=== PATIENT | male | born 2000 | race Caucasian/White ===

== ENCOUNTER 2024-07-03 17:33 | Observation (INO) ==
--- NOTE | 2024-07-03 17:41 | ED Triage Note ---
Date of Service July 03, 2024 Provider in Triage Author: Deisi Huber History of Present Illness This patient was briefly evaluated while in triage. An abbreviated physical exam was performed. This patient is a 23-year-old Male who presents to the ED for evaluation of chest pain. The patient states this has been ongoing for the past 1-2 weeks. It goes into the left arm. No shortness of breath or recent illness. Pain is intermittent. No pain at this time. Physical Exam GENERAL: Non-toxic and in no acute distress. HEENT: Pupils equal. No obvious scleral icterus. HEART: Regular rate and rhythm. LUNGS: Clear to auscultation. No accessory muscle use. NEURO: Alert and oriented. No obvious neurological deficits on quick neuro exam. Initial orders for labs and / or imaging were placed and patient was placed in the waiting area until a bed is available. Please see further documentation for the full ED course.
--- NOTE | 2024-07-03 18:28 | Emergency Department Note ---
Impression & Plan Chest pain, Heart murmur ED Provider Note CHIEF COMPLAINT: Chest pain HISTORY OF PRESENTING ILLNESS: This 23-year-old male patient presents to the emergency department for evaluation of intermittent left-sided chest pain for the past 2 weeks. The pain radiates to his left arm at times. Will get intermittent numbness and tingling into the left arm as well. Denies any pain of the arm. Denies any redness or swelling of the arm. Denies any neck or back pain. Denies SOB. Denies abdominal pain, nausea, or vomiting. Denies any injury or trauma to the area. Symptoms are worse at night when he lays down, but still intermittent. Does not seem to be worse with movement or with breathing. No symptoms with exertion. Sometimes the symptoms happen after eating, but not always. The symptoms are random and last for a few minutes and then resolve. He is getting the symptoms a few times a day every day per patient. He has not taken anything for the symptoms yet. The patient denies recent long car or plane rides or recent injury/trauma/surgery. Denies any personal history of blood clots or bleeding disorders. Denies any family history of blood clots or bleeding disorders. Denies any hormonal medication use. Denies any hemoptysis. Denies leg/calf pain or swelling. He denies any personal history of heart problems. Maternal grandmother with an ND in his 70's. Denies any other cardiac history in his family. Denies any family history of sudden . REVIEW OF SYSTEMS: See HPI for pertinent positives and pertinent negatives. ALLERGIES: NKDA MEDICATIONS: None PAST MEDICAL HISTORY: Denies pertinent past medical or pertinent past surgical history PHYSICAL EXAM: VITALS: Vitals are noted on the nurse's note and reviewed by myself. GENERAL: Non toxic, in no acute distress, non-diaphoretic. SKIN: No abnormal rashes or skin lesions to the chest, neck, back, or left arm. Capillary refill <2 sec. EYES: PERRLA. EOMI. Conjunctivae without injection, sclerae without icterus. NOSE: Patent without discharge. MOUTH: Mucous membranes moist. Uvula midline. Airway patent. NECK: Supple without nuchal rigidity. No cervical spine tenderness. No paraspinal muscle tenderness. Full range of motion of the neck without pain. HEART: Regular rate and rhythm. The patient has a II/ systolic murmur heard at the upper portion of the heart as well as a III/ systolic murmur at the base of the heart with possible gallop. LUNGS: Clear to auscultation bilaterally without wheezes, rales or rhonchi. No retractions or accessory muscle use. CHEST: Chest wall is nontender to palpation. No crepitus felt of the chest wall or neck area. ABDOMEN: Positive bowel sounds x 4. Normal tympanic percussion. Soft, nontender to palpation. No masses or hepatosplenomegaly. Harvey sign negative. No CVA tenderness. No guarding, rigidity, or rebound tenderness. No focal RLQ or LLQ tenderness. MUSCULOSKELETAL: No gross musculoskeletal defects. Bilateral lower extremities are nontender to palpation. No erythema, edema, warmth, or cording of the lower extremities felt. Peripheral pulses 2+ and equal in the bilateral upper and lower extremities. NEURO: Patient was alert and oriented. No focal neurological deficits. DIFFERENTIAL DIAGNOSIS: Differential diagnosis includes angina, ND, pericarditis, myocarditis, aortic dissection, pleurisy, pneumothorax, PE, pneumonia, pneumomediastinum, esophagitis, esophageal spasm, GERD, perforated esophagus, perforated duodenal/gastric ulcer, pancreatitis, cholecystitis, costochondritis, musculoskeletal, bronchitis, URI, or others. ED COURSE AND MEDICAL DECISION MAKING: MEDICATIONS GIVEN: 500 mL liter normal saline solution bolus. Additional fluids were held due to the severe IV fluid shortage. Pepcid 20 mg IV. Tylenol 1000 mg IV. MONITOR: Continuous bus monitor: Order was placed for continuous bus monitor. Patient was placed on the bus monitor and continuous pulse ox. Patient was noted to be in normal sinus rhythm at an initial rate of 80 bpm per my interpretation. EKG: EKG was interpreted by myself as normal sinus rhythm at 87 bpm with no acute ST or T wave changes. Repeat EKG showed normal sinus rhythm at 80 bpm with some mild ST elevation that appears consistent with either early repolarization or pericarditis. No reciprocal changes. No evidence for ischemia. INTERPRETATION OF LABS: I interpreted the labs with full lab results as below in the lab section of this note. Pertinent lab results discussed in the MDM section below. INTERPRETATION OF IMAGING: Imaging studies were interpreted by myself and read by radiology as per the imaging section of this note. Chest x-ray was negative for acute cardiopulmonary etiology. CTA of the chest with IV contrast showed no evidence for PE, pneumonia, pneumothorax, cardiac abnormality, or other acute cardiopulmonary etiology. CONSULTATIONS: On-call hospitalist MDM SUMMARY: The patient was seen during a time of extreme volume and extreme acuity. Nursing triage protocols were initiated with IV lock, labs, and/or imaging studies conducted by protocol in the triage area. The patient was initially evaluated in a triage room and then re-evaluated once they were taken back to an exam room. The patient has had intermittent left-sided chest pain radiating to his back for the past 2 weeks. The pain also radiates into his left arm and his left arm feels like it goes numb sometimes. Currently he has no left arm symptoms. No redness, pain, or swelling of the left arm. No pain of the neck. No abdominal pain, nausea, or vomiting. No fevers, cough, or URI symptoms. No previous cardiopulmonary problems. The patient has a heart murmur on exam as discussed above which the patient states is new for him. The patient's initial EKG did not show acute abnormalities. Repeat EKG done by nursing staff and the patient was taken back to a room showed mild sloping ST elevation compared to his previous EKG which may be more consistent with early repolarization or possible pericarditis. However, no evidence for STEMI or ischemia. The patient was chest pain-free on recheck when he was taken back to the room. However, he states that he continues with intermittent symptoms. White blood cell count elevated at 5.61. Hemoglobin normal at 17.8. Platelet count normal at 202. Coags were normal. Total bilirubin 1.2, but CMP otherwise normal. Magnesium normal. Lipase normal. TSH normal. High-sensitivity troponin normal. Urinalysis with 1+ ketones, but otherwise negative. Lyme disease screen negative. ESR and CRP normal. Chest x-ray was negative for acute cardiopulmonary etiology. CTA of the chest with IV contrast showed no evidence for PE, pneumonia, pneumothorax, cardiac abnormality, or other acute cardiopulmonary etiology. I had a meaningful discussion about this patient with Dr. Gruber who agrees with my assessment and the treatment plan. Due to the patient's murmur on exam that appears to be new per patient or at least unknown to the patient as well as his intermittent chest pain and symptoms into the left arm, we feel the patient requires admission for further workup, evaluation, and treatment. I spoke with the on-call hospitalist who agreed to admit the patient. Please refer to their dictation for further details. The patient's care was transferred in stable condition. DIAGNOSIS: Chest pain Heart murmur Past Med/Surg History Problem List (Updated 07/04/24 @ 13:00 by Socorro Iglesias PA-C) Heart murmur (Acute) Chest pain (Acute) Atypical chest pain Social History Smoking Status: Never smoker Hx Alcohol Use: Yes Alcohol type: other Hx Substance Use: No Preferred Language: Khmer Communication Ability: Effective Children Counselor Required: No Beliefs That Will Affect Care: None Current Living Situation: Alone Other Information That Helps Us Care for You: No Feels Safe at Home: Yes Safety Concerns: Feels Safe At This Time Assistive Devices: Glasses Allergies Allergies Allergy/AdvReac Type Severity Reaction Status Date / Time No Known Allergies Allergy Verified 07/03/24 18:49 Home Meds Home Medications Medication Instructions Recorded Confirmed No Known Home Medications 07/03/24 07/03/24 Results & Data (ED) Vital Signs Vital Signs - 24 hr 07/03/24 17:40 07/03/24 19:03 07/03/24 19:05 Temperature 36.5 C Temperature Source Skin Pulse Rate 100 H 91 H 82 Respiratory Rate 18 16 Blood Pressure 161/91 H 160/95 H Blood Pressure Mean 114 111 Pulse Oximetry 97 100 Oxygen Delivery Method Room Air Oxygen Flow Rate Sepsis Recent Fever Within 48 Hours No Sepsis New/Unexplained Change in Mental Status No Sepsis Action Taken by Nursing No Action Required 07/03/24 19:26 07/03/24 19:27 07/03/24 19:30 Temperature Temperature Source Pulse Rate 86 Respiratory Rate 18 Blood Pressure 133/88 Blood Pressure Mean 100 Pulse Oximetry 100 100 Oxygen Delivery Method Room Air Room Air Room Air Oxygen Flow Rate 100 Sepsis Recent Fever Within 48 Hours Sepsis New/Unexplained Change in Mental Status Sepsis Action Taken by Nursing 07/03/24 20:00 07/03/24 20:30 07/03/24 21:00 Temperature Temperature Source Pulse Rate 76 75 83 Respiratory Rate 18 16 16 Blood Pressure 121/77 132/79 136/71 Blood Pressure Mean 92 90 81 Pulse Oximetry 100 98 97 Oxygen Delivery Method Room Air Room Air Room Air Oxygen Flow Rate Sepsis Recent Fever Within 48 Hours Sepsis New/Unexplained Change in Mental Status Sepsis Action Taken by Nursing 07/03/24 21:33 07/03/24 22:00 07/03/24 22:30 Temperature Temperature Source Pulse Rate 83 93 H 90 Respiratory Rate 18 18 18 Blood Pressure 134/80 134/82 135/81 Blood Pressure Mean 101 98 95 Pulse Oximetry 98 98 98 Oxygen Delivery Method Room Air Room Air Room Air Oxygen Flow Rate Sepsis Recent Fever Within 48 Hours Sepsis New/Unexplained Change in Mental Status Sepsis Action Taken by Nursing 07/03/24 22:55 07/03/24 23:03 Temperature Temperature Source Pulse Rate 106 H 87 Respiratory Rate 18 Blood Pressure 138/79 Blood Pressure Mean 97 Pulse Oximetry 97 Oxygen Delivery Method Room Air Oxygen Flow Rate Sepsis Recent Fever Within 48 Hours Sepsis New/Unexplained Change in Mental Status Sepsis Action Taken by Nursing Laboratory Data 07/03/24 19:44 07/03/24 19:44 Lab Results 07/03/24 07/03/24 Range/Units 19:44 23:01 WBC 5.61 (4.8-10.8) K/ul RBC 5.64 (4.70-6.10) M/uL Hgb 17.8 (14.0-18.0) g/dl Hct 49.3 (42.0-52.0) % MCV 87.4 (80.0-100.0) fL MCH 31.6 (25.0-34.0) pg MCHC 36.1 H (32.0-36.0) g/dL RDW Std Deviation 37.9 (36.4-46.3) fL RDW Coeff of Shiela 11.9 (11.5-14.5) % Plt Count 202 (130-400) K/uL MPV 11.1 (9.4-12.4) fL Immature Gran % (Auto) 0.4 % Neut % (Auto) 59.1 % Lymph % (Auto) 29.1 % [place] % (Auto) 9.6 % Eos % (Auto) 1.1 % Baso % (Auto) 0.7 % Neut # (Auto) 3.32 (1.40-6.50) K/uL Lymph # (Auto) 1.63 (1.20-3.40) K/uL [place] # (Auto) 0.54 (0.11-0.59) K/uL Eos # (Auto) 0.06 (0.00-0.50) K/uL Baso # (Auto) 0.04 (0.00-0.20) K/uL Immature Gran # (Auto) 0.02 (0.01-0.20) K/uL ESR 3 (0-15) mm/hr PT 10.9 (9.0-12.0) Seconds INR 1.0 (0.9-1.1) APTT 28 (21-31) Seconds PTT Ratio 1.0 Sodium 138 (136-145) mmol/L Potassium 3.9 (3.5-5.1) mmol/L Chloride 101 (98-107) mmol/L Carbon Dioxide 30 (21-32) mmol/L Anion Gap 7 (3-11) BUN 13 (6-23) mg/dl Creatinine 0.88 (0.6-1.4) mg/dl Est Cr Clr Drug Dosing 96.4 ml/min eGFR 122.38 BUN/Creatinine Ratio 14.8 (10-20) Glucose 86 (70-99(Fasting)) mg/dl Calcium 10.2 (8.6-10.3) mg/dl Magnesium 2.1 (1.7-2.4) mg/dl Total Bilirubin 1.2 H (0.2-1.0) mg/dl AST 25 (13-39) U/L ALT 20 (7-52) U/L Alkaline Phosphatase 56 (34-104) U/L Troponin I High Sens < 2.3 (0-20) pg/ml C-Reactive Protein < 0.50 (0-0.5) mg/dl Total Protein 7.7 (6.0-8.3) gm/dl Albumin 5.3 H (3.4-5.0) gm/dl Globulin 2.4 L (2.5-4.0) gm/dl Albumin/Globulin Ratio 2.2 H (0.9-2) Lipase 25 (11-82) U/L TSH 2.270 (0.300-4.500) uIu/ml Urine Color Yellow Urine Appearance Clear (Clear) Urine pH 8.5 H (4.5-7.5) Ur Specific [place] > 1.045 H (1.000-1.030) Urine Protein Negative (Negative) Urine Glucose (UA) Negative (Negative) Urine Ketones 1+ H (Negative) Urine Blood Negative (Negative) Urine Nitrite Negative (Negative) Urine Bilirubin Negative (Negative) Urine Urobilinogen Negative (Negative) Ur Leukocyte Esterase Negative (Negative) Lyme Disease Screen Negative (Negative) Administered Medications Discontinued Medications Famotidine (Pepcid 20mg Iv Push) 20 mg in 5 mls @ 2.5 mls/min IV NOW STA Stop: 07/03/24 19:10 Last Admin: 07/03/24 19:42 Dose: 2.5 mls/min Documented By: MILDRED Acetaminophen (Ofirmev) 1,000 mg in 100 mls @ 400 mls/hr IV NOW STA Stop: 07/03/24 22:22 Last Infusion: 07/03/24 22:26 Dose: Infused Documented By: Admin: 07/03/24 22:11 Dose: 400 mls/hr Documented By: MILDRED Sodium Chloride (Nss) 500 mls @ 999 mls/hr IV .Q31M ONE Stop: 07/03/24 22:38 Last Infusion: 07/03/24 22:43 Dose: Infused Documented By: Admin: 07/03/24 22:12 Dose: 999 mls/hr Documented By: MILDRED Ioversol (Optiray 320 125ml) 115 ml IV ONCE ONE Stop: 07/03/24 21:29 Last Admin: 07/03/24 21:29 Dose: 115 ml Documented By: GARTH Imaging Data Radiologist's Impression: Chest X-Ray 07/03/24 17:41 INDICATION: Chest pain. TECHNIQUE: Frontal and lateral radiographs of the chest. COMPARISON: None. FINDINGS: The cardiomediastinal silhouette and pulmonary vasculature appear within normal limits. No infiltrate, pleural effusion or pneumothorax. No acute osseous abnormality evident. IMPRESSION: No acute cardiopulmonary process. Electronically signed by Gentry Gonzalez 07-03-2024 6:27 PM Discharge Plan Visit Data Chief Complaint: Chest Pain Stated Complaint: CHEST PAIN, LEFT ARM TINGLING, LOWER BACK PAIN ED Provider: Tony Gruber ED Midlevel Provider: Socorro Iglesias Discharge Problem: Chest pain, Heart murmur Patient Disposition: Admitted As Inpatient Condition: Good Discharge Instructions Interventions: ED Discharge Assessment Last Done: 07/03/24 23:52 Discharge Problem: Chest pain Qualifiers: Chest pain type: unspecified Qualified Code(s): R07.9 - Chest pain, unspecified
[2024-07-03] MEDS: FAMOTIDINE 20MG IV PUSH 20 MG/5 ML SYR IV STA (19:42)
[2024-07-03 20:14] LABS: Basophils # (auto) 0.04 K/uL (0.00-0.20); Basophils % (auto) 0.7 %; Eosinophils # (auto) 0.06 K/uL (0.00-0.50); Eosinophils % (auto) 1.1 %; Hematocrit (blood only) 49.3 % (42.0-52.0); Hemoglobin 17.8 g/dl (14.0-18.0); Immature Granulocytes # (auto) 0.02 K/uL (0.01-0.20); Immature Granulocytes % (auto) 0.4 %; Lymphocytes # (auto) 1.63 K/uL (1.20-3.40); Lymphocytes % (auto) 29.1 %; Mean Corpuscular Hemoglobin 31.6 pg (25.0-34.0); Mean Corpuscular Hgb Conc 36.1 g/dL (32.0-36.0); Mean Corpuscular Volume 87.4 fL (80.0-100.0); Mean Platelet Volume 11.1 fL (9.4-12.4); Monocytes # (auto) 0.54 K/uL (0.11-0.59); Monocytes % (auto) 9.6 %; Neutrophils # (auto) 3.32 K/uL (1.40-6.50); Neutrophils % (auto) 59.1 %; Platelet Count 202 K/uL (130-400); RDW Coefficient of Variation 11.9 % (11.5-14.5); RDW Standard Deviation 37.9 fL (36.4-46.3); Red Blood Count 5.64 M/uL (4.70-6.10); White Blood Count 5.61 K/ul (4.8-10.8)
[2024-07-03 20:30] LABS: Alanine Aminotransferase 20 U/L (7-52); Albumin Globulin Ratio 2.2 (0.9-2); Albumin Level 5.3 gm/dl (3.4-5.0); Alkaline Phosphatase 56 U/L (34-104); Anion Gap 7 (3-11); Aspartate Aminotransferase 25 U/L (13-39); BUN Creatinine Ratio 14.8 (10-20); Bilirubin,Total 1.2 mg/dl (0.2-1.0); Blood Urea Nitrogen 13 mg/dl (6-23); Calcium 10.2 mg/dl (8.6-10.3); Carbon Dioxide 30 mmol/L (21-32); Chloride 101 mmol/L (98-107); Creatinine Clr Calc Pharmacy 96.4 ml/min; Globulin 2.4 gm/dl (2.5-4.0); Glucose 86 mg/dl (70-99(Fasting)); Lipase 25 U/L (11-82); Magnesium 2.1 mg/dl (1.7-2.4); Potassium 3.9 mmol/L (3.5-5.1); Sodium 138 mmol/L (136-145); Total Protein 7.7 gm/dl (6.0-8.3)
[2024-07-03 20:35] LABS: Troponin I High Sensitivity < 2.3 pg/ml (0-20)
[2024-07-03 20:44] LABS: Partial Thromboplastin Time 28 Seconds (21-31); Prothrombin Time 10.9 Seconds (9.0-12.0)
[2024-07-03] MEDS: OPTIRAY 320 125ml IV ONE (21:29)
[2024-07-03] MEDS: ACETAMINOPHEN 1,000 MG/100 ML VIAL IV STA (22:11)
[2024-07-03] MEDS: SODIUM CHLORIDE 0.9% 500 ML IV ONE (22:12)
--- NOTE | 2024-07-03 22:57 | History & Physical Report ---
Date of Service July 03, 2024 Assessment & Plan (1) Atypical chest pain: Plan: Atypical chest pain Systolic murmur Malnutrition (low BMI) OBS PCU TTE, Cardiology consult Re: Chest pain, systolic murmur Nutrition consult RE low BMI DVT prophylaxis. SCDs Full code Text document was generated using [employer] voice recognition software. It may contain grammatical or spelling errors. Kindly contact undersigned for clarification of any documentation item in question. History of Present Illness Chief Complaint: Chest pain Primary Care Provider: NO PCP History obtained from patient, family, and records. No significant medical history. 2 weeks history of left-sided chest pain with occasional radiation to the left arm. Not related to exertion. No other symptoms. Denies recent trauma although work very physical as per partner. 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 No fever, no chills. No URTI symptoms. No recent tick bites. Medical History as above Surgical History : None Family History : Brain cancer; negative heart disease Personal/Social history : Non-smoker, no EtOH intake, [employer] department employee Allergies Allergy/AdvReac Type Severity Reaction Status Date / Time No Known Allergies Allergy Verified 07/03/24 18:49 Home Medications Medication Instructions Recorded Confirmed Type No Known Home Medications 07/03/24 07/03/24 History Past Med/Surg History Problem List (Updated 07/04/24 @ 08:33 by Oscar Madera MD) Atypical chest pain Social History Smoking Status: Never smoker Hx Alcohol Use: Yes Alcohol type: other Hx Substance Use: No Preferred Language: Luxembourgish Communication Ability: Effective Gas Worker Required: No Beliefs That Will Affect Care: None Current Living Situation: Alone Other Information That Helps Us Care for You: No Feels Safe at Home: Yes Safety Concerns: Feels Safe At This Time Assistive Devices: Glasses Review of Systems Review of Systems: As per HPI, all other systems reviewed and negative Physical Exam Physical Exam: GENERAL: Comfortable, pleasant, underweight, no respiratory distress SKIN: Normal color, warm HEENT: [place] palpebral conjunctivae, no ptosis, dry buccal mucosa NECK : Supple, no tenderness CHEST : CTA, no tenderness HEART : Tachycardic, systolic murmur ABDOMEN: Some distention, nontender EXTREMITIES : No LE swelling/tenderness, no other conspicuous deformities noted NEUROLOGIC : Coherent, no facial asymmetry, no other gross focality Results & Data Results & Data Vital Signs (Past 12 Hours) Vital Signs Temp Pulse Resp BP Pulse Ox O2 Del Method O2 Flow Rate 07/03/24 22:55 106 H 07/03/24 21:33 83 18 134/80 98 Room Air 07/03/24 21:00 83 16 136/71 97 Room Air 07/03/24 20:30 75 16 132/79 98 Room Air 07/03/24 20:00 76 18 121/77 100 Room Air 07/03/24 19:30 86 18 133/88 100 Room Air 07/03/24 19:27 Room Air 100 07/03/24 19:26 100 Room Air 07/03/24 19:05 82 07/03/24 19:03 91 H 16 160/95 H 100 Room Air 07/03/24 17:40 36.5 C 100 H 18 161/91 H 97 Laboratory Results Laboratory Results WBC 5.61 K/ul (4.8-10.8) 07/03/24 19:44 RBC 5.64 M/uL (4.70-6.10) 07/03/24 19:44 Hgb 17.8 g/dl (14.0-18.0) 07/03/24 19:44 Hct 49.3 % (42.0-52.0) 07/03/24 19:44 MCV 87.4 fL (80.0-100.0) 07/03/24 19:44 MCH 31.6 pg (25.0-34.0) 07/03/24 19:44 MCHC 36.1 g/dL (32.0-36.0) H 07/03/24 19:44 RDW Std Deviation 37.9 fL (36.4-46.3) 07/03/24 19:44 RDW Coeff of Shiela 11.9 % (11.5-14.5) 07/03/24 19:44 Plt Count 202 K/uL (130-400) 07/03/24 19:44 MPV 11.1 fL (9.4-12.4) 07/03/24 19:44 Immature Gran % (Auto) 0.4 % 07/03/24 19:44 Neut % (Auto) 59.1 % 07/03/24 19:44 Lymph % (Auto) 29.1 % 07/03/24 19:44 [place] % (Auto) 9.6 % 07/03/24 19:44 Eos % (Auto) 1.1 % 07/03/24 19:44 Baso % (Auto) 0.7 % 07/03/24 19:44 Neut # (Auto) 3.32 K/uL (1.40-6.50) 07/03/24 19:44 Lymph # (Auto) 1.63 K/uL (1.20-3.40) 07/03/24 19:44 [place] # (Auto) 0.54 K/uL (0.11-0.59) 07/03/24 19:44 Eos # (Auto) 0.06 K/uL (0.00-0.50) 07/03/24 19:44 Baso # (Auto) 0.04 K/uL (0.00-0.20) 07/03/24 19:44 Immature Gran # (Auto) 0.02 K/uL (0.01-0.20) 07/03/24 19:44 PT 10.9 Seconds (9.0-12.0) 07/03/24 19:44 INR 1.0 (0.9-1.1) 07/03/24 19:44 APTT 28 Seconds (21-31) 07/03/24 19:44 PTT Ratio 1.0 07/03/24 19:44 Sodium 138 mmol/L (136-145) 07/03/24 19:44 Potassium 3.9 mmol/L (3.5-5.1) 07/03/24 19:44 Chloride 101 mmol/L (98-107) 07/03/24 19:44 Carbon Dioxide 30 mmol/L (21-32) 07/03/24 19:44 Anion Gap 7 (3-11) 07/03/24 19:44 BUN 13 mg/dl (6-23) 07/03/24 19:44 Creatinine 0.88 mg/dl (0.6-1.4) 07/03/24 19:44 Est Cr Clr Drug Dosing 96.4 ml/min 07/03/24 19:44 eGFR 122.38 07/03/24 19:44 BUN/Creatinine Ratio 14.8 (10-20) 07/03/24 19:44 Glucose 86 mg/dl (70-99(Fasting)) 07/03/24 19:44 Calcium 10.2 mg/dl (8.6-10.3) 07/03/24 19:44 Magnesium 2.1 mg/dl (1.7-2.4) 07/03/24 19:44 Total Bilirubin 1.2 mg/dl (0.2-1.0) H 07/03/24 19:44 AST 25 U/L (13-39) 07/03/24 19:44 ALT 20 U/L (7-52) 07/03/24 19:44 Alkaline Phosphatase 56 U/L (34-104) 07/03/24 19:44 Troponin I High Sens < 2.3 pg/ml (0-20) 07/03/24 19:44 Total Protein 7.7 gm/dl (6.0-8.3) 07/03/24 19:44 Albumin 5.3 gm/dl (3.4-5.0) H 07/03/24 19:44 Globulin 2.4 gm/dl (2.5-4.0) L 07/03/24 19:44 Albumin/Globulin Ratio 2.2 (0.9-2) H 07/03/24 19:44 Lipase 25 U/L (11-82) 07/03/24 19:44 TSH 2.270 uIu/ml (0.300-4.500) 07/03/24 19:44 Impressions Chest X-Ray 07/03/24 17:41 INDICATION: Chest pain. TECHNIQUE: Frontal and lateral radiographs of the chest. COMPARISON: None. FINDINGS: The cardiomediastinal silhouette and pulmonary vasculature appear within normal limits. No infiltrate, pleural effusion or pneumothorax. No acute osseous abnormality evident. IMPRESSION: No acute cardiopulmonary process. Electronically signed by Gentry Gonzalez 07-03-2024 6:27 PM Chest CTA 07/03/24 18:50 Exam(s): CTA CHEST IV Amt: 115 ml opti 320 EXAM: CT Angiography Chest With Intravenous Contrast CLINICAL HISTORY: Reason for exam: Chest Pain, eval for PE. TECHNIQUE: Axial computed tomographic angiography images of the chest with intravenous contrast. CTDI is 10.7 mGy and DLP is 402.53 mGy-cm. Automated exposure control was utilized for the study. A dose lowering technique was utilized adhering to the principles of ALARA. MIP reconstructed images were created and reviewed. COMPARISON: Chest x-ray from July 03, 2024 at 1802 hrs. FINDINGS: Pulmonary arteries: The pulmonary arterial tree is well opacified with contrast. No pulmonary embolism is identified. Aorta: No acute findings. No thoracic aortic aneurysm. Lungs: Unremarkable. No mass. No consolidation. Pleural space: Unremarkable. No significant effusion. No pneumothorax. Heart: Unremarkable. No cardiomegaly. No significant pericardial effusion. No evidence of RV dysfunction. Bones/joints: No acute fracture. No dislocation. Soft tissues: Unremarkable. Lymph nodes: Unremarkable. No enlarged lymph nodes. IMPRESSION: The pulmonary arterial tree is well opacified with contrast. No pulmonary embolism is identified. No acute cardiopulmonary process is identified. Electronically signed by: Trino Dudley MD 07/03/24 22:55 PM Diagnostic Findings EKG as per my interpretation :Rate 90, NSR, normal axis, T wave abnormalities septal leads
[2024-07-03] MEDS ORDERED: ACETAMINOPHEN 325 MG TAB PO PRN (23:14)
[2024-07-03] MEDS ORDERED: NITROGLYCERIN SL 0.4 MG/TAB TAB SL PRN (23:14)
[2024-07-03] MEDS ORDERED: PROMETHAZINE 6.25 MG/50.25 ML BAG IV PRN (23:14)
[2024-07-03] MEDS ORDERED: LORazepam 0.5 MG TAB PO PRN (23:14)
[2024-07-03] MEDS ORDERED: traMADol HCL 50 MG TABLET PO PRN (23:14)
[2024-07-03 23:24] LABS: Appearance Urine Clear (Clear); Bilirubin Urine Negative (Negative); Blood Urine Negative (Negative); Color Urine Yellow; Glucose Urine UA Negative (Negative); Ketones Urine 1+ (Negative); Leukocyte Esterase Urine Negative (Negative); Nitrite Urine Negative (Negative); Protein Urine Negative (Negative); Specific Gravity Urine > 1.045 (1.000-1.030); Urobilinogen Urine Negative (Negative); pH Urine 8.5 (4.5-7.5)
[2024-07-04 01:04] LABS: C Reactive Protein < 0.50 mg/dl (0-0.5)
--- NOTE | 2024-07-04 08:26 | Cardiology Consultation ---
Date of Consultation July 04, 2024 Assessment & Plan (1) Atypical chest pain: Plan 23 yo man presenting with chest pain Chest pain - atypical No evidence of coronary ischemia Troponin negative EKG - no ischemia noted Pain is not clearly c/w pericarditis. EKGs reviewed - inferior J point elevation Plans to repeat EKG Treated with NSAIDS -no improvement Check ESR and CRP Supect pain is musculoskeletal Explained to patient that MVP can be linked to chest pain syndrome ECHO - no WMA, no significant pericardial effusion Lyme Titers negative Will need outpt [facility] to evaluate Mitral Valve and MR. 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 No trauma to chest No tic bits No rash No rib fx No fever No chills No recent dental work Med HX: None Allergies Allergy/AdvReac Type Severity Reaction Status Date / Time No Known Allergies Allergy Verified 07/03/24 18:49 Home Medications Medication Instructions Recorded Confirmed Type No Known Home Medications 07/03/24 07/03/24 History Patient History Social History Smoking Status: Never smoker Hx Alcohol Use: Yes Alcohol type: other Hx Substance Use: No Preferred Language: Bahamian Communication Ability: Effective Rn Endoscopy Required: No Beliefs That Will Affect Care: None Current Living Situation: Alone Other Information That Helps Us Care for You: No Feels Safe at Home: Yes Safety Concerns: Feels Safe At This Time Assistive Devices: Glasses Review of Systems Review of Systems: All systems reviewed & are unremarkable except as noted in HPI & below Physical Exam Physical Exam: Thin man - long hair No elevation in JVP No carotid bruit No focal chest wall tenderness S1S2 midsystolic click - 2/6 systolic murmur post click CTA B No c/c/e Warm and well-perfused No gross neurologic deficits Results & Data Vital Signs (Past 12 Hours) Vital Signs Temp Pulse Pulse Pulse Resp BP BP 07/04/24 07:29 36.6 C 75 19 117/77 07/04/24 04:03 36.9 C 76 16 07/04/24 00:37 82 18 132/81 07/04/24 00:37 07/04/24 00:30 36.7 C 82 18 132/81 07/04/24 00:00 80 16 128/81 07/03/24 23:30 95 H 20 117/74 07/03/24 23:03 87 18 138/79 07/03/24 22:55 106 H 07/03/24 22:30 90 18 135/81 07/03/24 22:00 93 H 18 134/82 07/03/24 21:33 83 18 134/80 07/03/24 21:00 83 16 136/71 07/03/24 20:30 75 16 132/79 BP Pulse Ox Pulse Ox O2 Del Method O2 Del Method 07/04/24 07:29 97 Room Air 07/04/24 04:03 115/72 96 Room Air 07/04/24 00:37 95 Room Air 07/04/24 00:37 95 Room Air 07/04/24 00:30 96 Room Air 07/04/24 00:00 96 Room Air 07/03/24 23:30 97 Room Air 07/03/24 23:03 97 Room Air 07/03/24 22:55 07/03/24 22:30 98 Room Air 07/03/24 22:00 98 Room Air 07/03/24 21:33 98 Room Air 07/03/24 21:00 97 Room Air 07/03/24 20:30 98 Room Air Laboratory Results Cardiac Enzymes 07/03/24 07/03/24 Range/Units 19:44 23:27 AST 25 (13-39) U/L Troponin I High Sens < 2.3 < 2.3 (0-20) pg/ml Coagulation 07/03/24 Range/Units 19:44 PT 10.9 (9.0-12.0) Seconds APTT 28 (21-31) Seconds CBC 07/03/24 Range/Units 19:44 WBC 5.61 (4.8-10.8) K/ul RBC 5.64 (4.70-6.10) M/uL Hgb 17.8 (14.0-18.0) g/dl Hct 49.3 (42.0-52.0) % Plt Count 202 (130-400) K/uL Neut # (Auto) 3.32 (1.40-6.50) K/uL Lymph # (Auto) 1.63 (1.20-3.40) K/uL [place] # (Auto) 0.54 (0.11-0.59) K/uL Eos # (Auto) 0.06 (0.00-0.50) K/uL Baso # (Auto) 0.04 (0.00-0.20) K/uL Comprehensive Metabolic Panel 07/03/24 Range/Units 19:44 Sodium 138 (136-145) mmol/L Potassium 3.9 (3.5-5.1) mmol/L Chloride 101 (98-107) mmol/L Carbon Dioxide 30 (21-32) mmol/L BUN 13 (6-23) mg/dl Creatinine 0.88 (0.6-1.4) mg/dl Glucose 86 (70-99(Fasting)) mg/dl Calcium 10.2 (8.6-10.3) mg/dl AST 25 (13-39) U/L ALT 20 (7-52) U/L Alkaline Phosphatase 56 (34-104) U/L Total Protein 7.7 (6.0-8.3) gm/dl Albumin 5.3 H (3.4-5.0) gm/dl Intake and Output 07/03/24 07/04/24 07/04/24 22:59 06:59 14:59 Intake Total 600 / 600 Balance 600 / 600 Intake: IV 600 / 600 Acetaminophen 1,000 mg In 100 100 / 100 ml @ 400 mls/hr IV NOW STA Rx#: [id number] Sodium Chloride 0.9% 500 ml @ 500 / 500 999 mls/hr IV .Q31M ONE Rx#: [id number] Other: # Unmeasured Voids 1 Weight 53.1 kg 52.9 kg Weight Measurement Method Standing Scale Diagnostic Findings ECHOcardiogram: 07-04-2024 LVEF 55-60% No WMA MV leaflets thickened MVP - Moderate MR Trace TR No Pulmonary Hypertension Normal IVC EKG - 07-03-2024 No active ischemia J point elevation noted CXR: 07-03-2024 No acute abnormalities CTA 07-03-2024 FINDINGS: Pulmonary arteries: The pulmonary arterial tree is well opacified with contrast. No pulmonary embolism is identified. Aorta: No acute findings. No thoracic aortic aneurysm. Lungs: Unremarkable. No mass. No consolidation. Pleural space: Unremarkable. No significant effusion. No pneumothorax. Heart: Unremarkable. No cardiomegaly. No significant pericardial effusion. No evidence of RV dysfunction. Bones/joints: No acute fracture. No dislocation. Soft tissues: Unremarkable. Lymph nodes: Unremarkable. No enlarged lymph nodes. IMPRESSION: The pulmonary arterial tree is well opacified with contrast. No pulmonary embolism is identified. Medications Administered Current Inpatient Medications Acetaminophen (Acetaminophen 325 Mg Tab) 650 mg PO QID PRN PRN Reason: pain/fever Stop: 08/02/24 23:13 Promethazine HCl (Phenergan) 6.25 mg in 50.25 mls @ 201 mls/hr IV Q6H PRN PRN Reason: Nausea And Vomiting Stop: 08/02/24 23:13 Lorazepam (Lorazepam 0.5 Mg Tab) 0.5 mg PO TID PRN PRN Reason: Anxiety Stop: 08/02/24 23:13 Tramadol HCl (Tramadol Hcl 50 Mg Tablet) 25 mg PO Q4H PRN PRN Reason: Pain Stop: 08/02/24 23:13
[2024-07-04 11:04] VITALS: RESP 15; TEMP 98.2; O2SAT 98
[2024-07-04 13:30] LABS: C Reactive Protein < 0.50 mg/dl (0-0.5)
[2024-07-04 13:37] LABS: Troponin I High Sensitivity < 2.3 pg/ml (0-20)
--- NOTE | 2024-07-04 14:00 | Electrocardiogram Report ---
Test Reason : Blood Pressure : */* mmHG Vent. Rate : 80 BPM Atrial Rate : 80 BPM P-R Int : 128 ms QRS Dur : 88 ms QT Int : 350 ms P-R-T Axes : 21 76 62 degrees QTcB Int : 403 ms Normal sinus rhythm ST elevation, consider early repolarization, pericarditis, or injury Abnormal ECG When compared with ECG of 03-Jul-2024 17:52, (unconfirmed) No significant change was found Confirmed by Tony Su ([id number]) on 07/04/2024 1:59:49 PM Referred By: REFERRED SELF Confirmed By: Tony Su
--- NOTE | 2024-07-04 14:00 | Electrocardiogram Report ---
Test Reason : Blood Pressure : */* mmHG Vent. Rate : 87 BPM Atrial Rate : 87 BPM P-R Int : 136 ms QRS Dur : 94 ms QT Int : 340 ms P-R-T Axes : 72 70 71 degrees QTcB Int : 409 ms Normal sinus rhythm with sinus arrhythmia Normal ECG No previous ECGs available Confirmed by Tony Su ([id number]) on 07/04/2024 2:00:10 PM Referred By: REFERRED SELF Confirmed By: Tony Su
--- NOTE | 2024-07-04 14:37 | Discharge Summary ---
Discharge Summary Date of Service July 04, 2024 delayed entry date of service noted above Principal Dx & Hospital Course #1 = Principal Diagnosis (1) Atypical chest pain: Atypical chest pain Systolic murmur Malnutrition (low BMI) Cardiology service consulted, Dr. Syd Morejon, per his notes; Chest pain - atypical No evidence of coronary ischemia Troponin negative EKG - no ischemia noted ESR and CRP are both low -suggesting no major inflammation. Repeat Troponin was WNL No cervical spine disease - no neck trauma - cervical radiculopathy less likely No illicit drug use Pain is not clearly c/w pericarditis. EKGs reviewed - inferior J point elevation Treated with NSAIDS -no improvement Suspect pain is musculoskeletal Explained to patient that MVP can be linked to chest pain syndrome ECHO - no WMA, no significant pericardial effusion Lyme Titers negative Will need outpt [facility] to evaluate Mitral Valve and MR. - CT angio chest: no pulmonary embolism - possible musculoskeletal etiology PRN Ibuprofen PCP ff up in 1 week Notes For Next Care Provider Medication Changes From Visit Ibuprofen PRN Admission HPI Per Admitting Provider History obtained from patient, family, and records. No significant medical history. 2 weeks history of left-sided chest pain with occasional radiation to the left arm. Not related to exertion. No other symptoms. Denies recent trauma although work very physical as per partner. 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 No fever, no chills. No URTI symptoms. No recent tick bites. Medical History as above Surgical History : None Family History : Brain cancer; negative heart disease Personal/Social history : Non-smoker, no EtOH intake, [employer] employee Admission Exam Per Admitting Provider GENERAL: Comfortable, pleasant, underweight, no respiratory distress SKIN: Normal color, warm HEENT: Story palpebral conjunctivae, no ptosis, dry buccal mucosa NECK : Supple, no tenderness CHEST : CTA, no tenderness HEART : Tachycardic, systolic murmur ABDOMEN: Some distention, nontender EXTREMITIES : No LE swelling/tenderness, no other conspicuous deformities noted NEUROLOGIC : Coherent, no facial asymmetry, no other gross focality Discharge Exam General- oriented x 3, not in distress, speaks in sentences with no effort or accessory muscle use Eyes- anicteric Neck- no JVD Lungs- clear breath sounds bilaterally, no rales/wheezes Heart- normal rate, regular rhythm; grade 1 holosystolic murmur Abdomen- normal bowel sounds, nondistended, soft, nontender Extremities- no pretibial edema, no calf tenderness Neuro- alert, oriented x 3; no gross focal neurologic deficits Skin- warm & dry Updated Medication List Medication Instructions Recorded Confirmed Type ibuprofen 400 mg tablet 400 mg PO .Q4-Q6H PRN pain #14 tabs 07/04/24 Rx Hospital Stay Data Consultations 07/03/24 22:18 ED Decision to Admit Stat 07/03/24 23:14 Consult Cardiology Routine Diagnostic Imagining Performed CXR: INDICATION: Chest pain. TECHNIQUE: Frontal and lateral radiographs of the chest. COMPARISON: None. FINDINGS: The cardiomediastinal silhouette and pulmonary vasculature appear within normal limits. No infiltrate, pleural effusion or pneumothorax. No acute osseous abnormality evident. IMPRESSION: No acute cardiopulmonary process. Electronically signed by Gentry Gonzalez 07-03-2024 6:27 PM Dictated: 07/03/24 181 Transcribed: 07/03/24 18:50 CT angio chest PE protocol Stat Exam(s): CTA CHEST IV Amt: 115 ml opti 320 EXAM: CT Angiography Chest With Intravenous Contrast CLINICAL HISTORY: Reason for exam: Chest Pain, eval for PE. TECHNIQUE: Axial computed tomographic angiography images of the chest with intravenous contrast. CTDI is 10.7 mGy and DLP is 402.53 mGy-cm. Automated exposure control was utilized for the study. A dose lowering technique was utilized adhering to the principles of ALARA. MIP reconstructed images were created and reviewed. COMPARISON: Chest x-ray from July 03, 2024 at 1802 hrs. FINDINGS: Pulmonary arteries: The pulmonary arterial tree is well opacified with contrast. No pulmonary embolism is identified. Aorta: No acute findings. No thoracic aortic aneurysm. Lungs: Unremarkable. No mass. No consolidation. Pleural space: Unremarkable. No significant effusion. No pneumothorax. Heart: Unremarkable. No cardiomegaly. No significant pericardial effusion. No evidence of RV dysfunction. Bones/joints: No acute fracture. No dislocation. Soft tissues: Unremarkable. Lymph nodes: Unremarkable. No enlarged lymph nodes. IMPRESSION: The pulmonary arterial tree is well opacified with contrast. No pulmonary embolism is identified. No acute cardiopulmonary process is identified. Electronically signed by: Trino Dudley MD 07/03/24 22:55 PM Dictated: [id number] Transcribed: 07/03/[id number] Pending Results Patient Have Any Pending Studies at Discharge: No Discharge Instructions Given to Patient (Per Discharging Provider) PLEASE REFER TO YOUR NEW MEDICATION LIST AND FOLLOW INSTRUCTIONS CAREFULLY. YOUR NEW MEDICATIONS INCLUDE: IBUPROFEN - 200-400mg every 4-6 hr as needed for pain always with food drink plenty of water to avoid kidney injury only take as prescribed - start on July 06, 2024 PLEASE CALL YOUR PRIMARY CARE PHYSICIAN OR RETURN TO THE ER IF WITH WORSENING OF SYMPTOMS, INCLUDING Worsening chest pain, shortness of breath, dizziness, palpitations, etc. FOLLOW UP WITH PRIMARY CARE PHYSICIAN IN 1 WEEK OUTLINED ABOVE. FOLLOW UP WITH [facility] IN 2 WEEKS. THE CLINIC WILL BE CALLING YOU SOON FOR THE APPOINTMENT. Total Time Total Time Spent Total Time Spent (In Minutes): 45 minutes
[2024-07-04 14:51] VITALS: BP 117/77; PULSE 82
--- NOTE | 2024-07-05 09:26 | Electrocardiogram Report ---
Test Reason : Blood Pressure : */* mmHG Vent. Rate : 73 BPM Atrial Rate : 73 BPM P-R Int : 128 ms QRS Dur : 84 ms QT Int : 368 ms P-R-T Axes : 5 87 61 degrees QTcB Int : 405 ms Normal sinus rhythm ST elevation, consider early repolarization, pericarditis, or injury Abnormal ECG When compared with ECG of 03-Jul-2024 19:33, No significant change was found Confirmed by Tony Su ([id number]) on 07/05/2024 9:26:09 AM Referred By: REFERRED SELF Confirmed By: Tony Su
== END 2024-07-04 15:15 | disposition home or self-care (01) ==
LOC: 2S 17:33 → ED 17:33 → 2S 23:52